=== PATIENT | female | born 1975 | race Caucasian/White ===

== ENCOUNTER 2016-10-27 13:56 | Emergency (ER) | payer OTHER ==
--- NOTE | 2016-10-27 15:02 | UC ---
Lower Extremity/Ankle HPI - HPI Summary HPI Summary: "Um, there's something going on with my foot and it hurts so bad it's ... [id number] ... and I just wanna right now 'cause it hurts so bad. And I have diabetes too." Diffuse left foot pain since last night; no known injury. Wounds in various stages of healing; three open wounds on distal plantar aspect. Denies fever/chills. Polydipsia for one week. No PCP. Is not checking her fingersticks; has not used her insulin, except for today, for two weeks. [ End ] - History of Current Complaint Chief Complaint: UCSkin Stated Complaint: LEFT FOOT PAIN Time Seen by Provider: 10/27/16 14:52 Hx Obtained From: Patient Hx Last Menstrual Period: "last week" ?: No Onset/Duration: Sudden Onset Severity Initially: Mild Aggravating Factor(s): Standing, Ambulation Alleviating Factor(s): Rest, Elevation Able to Bear Weight: Yes - Risk Factors Gout Risk Factors: Negative DVT Risk Factors: Negative Septic Arthritis Risk Factor: Immunosuppressed - Allergies/Home Medications Allergies/Adverse Reactions: Allergies Allergy/AdvReac Type Severity Reaction Status Date / Time Shellfish Allergy Allergy "Can't Verified 10/27/16 14:07 breathe" Home Medications: Home Medications Aspirin EC Low Dose* [Ecotrin EC Low Dose 81 MG*] 81 mg PO DAILY 10/27/16 [ History Confirmed 10/27/16] Cholecalciferol TAB* [Vitamin D TAB*] 1,000 unit PO QAM 10/27/16 [History Confirmed 10/27/16] Insulin GLARGINE(*) [Lantus(*)] 40 units SUBCUT BEDTIME 10/27/16 [History Confirmed 10/27/16] Levetiracetam XR TAB(NF) [Keppra XR TAB(NF)] 1,000 mg PO BEDTIME 10/27/16 [ History Confirmed 10/27/16] Lisinopril TAB* [Prinivil TAB*] 5 mg PO QAM 10/27/16 [History Confirmed 10/27/16 ] Simvastatin TAB(NF) [Zocor(NF)] 20 mg PO BEDTIME 10/27/16 [History Confirmed ] SitaGLIPtin (NF) [Januvia (NF)] 100 mg PO QAM 10/27/16 [History Confirmed ] Venlafaxine EXT RELEASE CAP* [Effexor Xr CAP*] 150 mg PO QAM 10/27/16 [History Confirmed 10/27/16] metFORMIN* [Glucophage 1000 MG TAB *] 1,000 mg PO BID 10/27/16 [History Confirmed 10/27/16] PMH/Surg Hx/FS Hx/Imm Hx Previously Healthy: No Endocrine History: Diabetes Neurological History: CVA - Surgical History Surgical History: None - Family History Known Family History: Positive: None - Social History Occupation: Unemployed Lives: With Family Alcohol Use: Rare Substance Use Type: Cocaine Substance Use Comment - Amount & Last Used: Crack Cocaine two times daily & last night Smoking Status (MU): Heavy Every Day Tobacco Smoker Type: Cigarettes Amount Used/How Often: 1/2 PPD Length of Time of Smoking/Using Tobacco: Since Age 16 Have You Smoked in the Last Year: Yes Review of Systems Constitutional: Negative Skin: Negative Eyes: Negative ENT: Negative Respiratory: Negative Cardiovascular: Negative Gastrointestinal: Negative Genitourinary: Negative Motor: Negative Neurovascular: Negative Musculoskeletal: Arthralgia Neurological: Negative Psychological: Negative All Other Systems Reviewed And Are Negative: Yes Physical Exam Triage Information Reviewed: Yes Appearance: Pain Distress - moderate Vital Signs: Initial Vital Signs Temp 97.6 F 10/27/16 14:03 Pulse 76 10/27/16 14:03 Resp 16 10/27/16 14:03 BP 137/70 10/27/16 14:03 Pulse Ox 96 10/27/16 14:03 Vital Signs Reviewed: Yes Eye Exam: Normal ENT Exam: Normal Dental Exam: Normal Neck exam: Normal Neck: Positive: 1 Respiratory Exam: Normal Cardiovascular Exam: Normal Musculoskeletal Exam: Normal Neurological Exam: Normal Psychological Exam: Normal Skin: Positive: Other - left foot with severe pain to palpation and multiple breaks in skin Lower Extremity Course/Dx - Course Course Of Treatment: Uncontrolled DM on insulin not using with history of CVA, illicit drug use, no medications and severe foot pain. TO go to [place] where she had treatment for previous CVA and requests [place]. Spoke with Dr Sandoval who agrees to Transfer - Differential Dx/Diagnosis Provider Diagnoses: Uncontrolled Diabetes with severe foot pain right Discharge - Discharge Plan Condition: Good Disposition: TRANS HIGHER LVL OF CARE FAC Referrals: No Primary Care Phys,NOPCP [Primary Care Provider] - As Soon As Possible
[2016-10-27 15:43] VITALS: BP 112/80
== END 2016-10-27 15:48 | disposition short-term general hospital (02) ==
LOC: UCCORT 13:56
DX: E11.65 Type 2 diabetes mellitus with hyperglycemia (principal); Z79.4 Long term (current) use of insulin; Z79.84 Long term (current) use of oral hypoglycemic drugs; M79.672 Pain in left foot; Z86.73 Personal history of transient ischemic attack (TIA), and cerebral infarction without residual deficits; F17.210 Nicotine dependence, cigarettes, uncomplicated; F14.90 Cocaine use, unspecified, uncomplicated; Z79.82 Long term (current) use of aspirin
CPT/HCPCS: 99203; G0463